=== PATIENT | female | born 1950 | race Caucasian/White ===

== ENCOUNTER 2017-12-14 20:58 | Emergency (ER) | payer OTHER, MEDICARE ==
[~2017-12-14] VITALS: Ht 162.6 cm; Wt 79.4 kg
[~2017-12-14 20:58] MED LIST: ANTIVERT25 MG PO; ASPIRIN81 M2 PO; ATENOLOL25 M1 PO; DILAUDID2 MG PO; FENOFIBRIC ACI135 MG PO; GRALISE300 MG PO; HYDROMORPHONE HC4 MG PO; LYRICA50 MG; NEXIUM20 MG; SIMVASTATIN10 M1 PO; STADOL NASAL2.5 ML NS; VALIUM5 MG PO; VESICARE10 MG PO
[2017-12-14 21:31] LABS: HEMATOCRIT 40.5 % (36.0-46.0); HEMOGLOBIN 14.2 G/DL (11.9-15.5); MCHC 35.1 G/DL (30.0-36.0); MCV 85.6 FL (83-99); PLATELET COUNT 290 K/uL (156-360); RBC DIS.WIDTH-CV 11.8 % (11.8-14.6); RBC DIS.WIDTH-SD 36.6 % (39-53); RED BLOOD COUNT 4.73 M/uL (3.80-5.20); WHITE BLOOD COUNT 7.1 K/uL (4.1-10.2)
[2017-12-14 21:41] LABS: CHLORIDE 105 mEq/L (99-109); POTASSIUM 4.2 mEq/L (3.7-5.4); SODIUM 142 mEq/L (136-147)
[2017-12-14 21:42] LABS: GLUCOSE 134 mg/dL (70-99)
[2017-12-14 21:46] LABS: CREATININE 0.9 mg/dL (0.6-1.3); GFR ESTIMATE (CALCULATED) > 59 mL/min/
[2017-12-14 21:47] LABS: UREA NITROGEN (BUN) 12 mg/dL (9-23)
[2017-12-14 21:55] LABS: TROP-I INTERPRETATION NEGATIVE; TROPONIN-I < 0.01 ng/mL (0.0-0.30)
[2017-12-14 23:03] LABS: MAGNESIUM 2.2 mg/dL (1.3-2.7)
[2017-12-14 23:44] VITALS: BP 152/91
== END 2017-12-14 23:45 | disposition home or self-care (01) ==
LOC: EME 20:58
DX: R06.00 Dyspnea, unspecified (principal); G24.9 Dystonia, unspecified; M79.7 Fibromyalgia; K21.9 Gastro-esophageal reflux disease without esophagitis; J45.909 Unspecified asthma, uncomplicated; Z90.49 Acquired absence of other specified parts of digestive tract; Z87.891 Personal history of nicotine dependence; Z79.82 Long term (current) use of aspirin; Z88.8 Allergy status to other drugs, medicaments and biological substances; Z88.6 Allergy status to analgesic agent; Z88.5 Allergy status to narcotic agent
CPT/HCPCS: 71046; 80048; 83735; 84484; 85027; 85379; 93005; 99281; 99284